=== PATIENT | female | born 1980 | race Caucasian/White ===

== ENCOUNTER 2024-02-27 15:31 | Emergency (ER) | payer OTHER ==
[~2024-02-27] VITALS: Ht 162.6 cm; Wt 90.7 kg
[2024-02-27 15:44] VITALS: PULSE 83; RESP 16; TEMP 98.2
[2024-02-27 16:25] LABS: CLARITY,URINE HAZY (CLEAR); COLOR,URINE YELLOW (YELLOW); PH,URINE 6 (5 - 7)
[2024-02-27 16:26] LABS: BACTERIA,URINE FEW /HPF; BILIRUBIN,URINE NEGATIVE (NEGATIVE); EPITHELIAL CELLS,URINE FEW /LPF; GLUCOSE, URINE NEGATIVE (NEGATIVE); KETONES,URINE NEGATIVE (NEGATIVE); LEUKOCYTE ESTERASE ,URINE NEGATIVE (NEGATIVE); NITRITE,URINE NEGATIVE (NEGATIVE); PROTEIN,URINE DIPSTICK NEGATIVE (NEGATIVE); RBC,URINE 0-5 /HPF (0-5); URINE UROBILINOGEN 0.2 mg/dL (0.2 - 1); WBC,URINE (MAN) 0-5 /HPF (0-5)
[2024-02-27 17:01] VITALS: BP 114/71; PULSE 71; RESP 16; TEMP 98.2; O2SAT 100
== END 2024-02-27 17:03 | disposition home or self-care (01) ==
LOC: ER 15:49
DX: R10.32 Left lower quadrant pain (principal); N81.10 Cystocele, unspecified; E03.9 Hypothyroidism, unspecified
CPT/HCPCS: 81001; 99283